=== PATIENT | male | born 1995 | race Caucasian/White ===

== ENCOUNTER 2021-07-03 10:03 | Emergency (ER) | payer OTHER ==
[~2021-07-03] VITALS: Ht 177.8 cm; Wt 93.0 kg
[2021-07-03] MEDS ORDERED: Betamethasone V15 GM TOP (12:31)
[2021-07-03] MEDS ORDERED: Prednisone20 MG PO (12:31)
== END 2021-07-03 12:52 | disposition home or self-care (01) ==
LOC: ER 10:03
DX: L25.5 Unspecified contact dermatitis due to plants, except food (principal)
CPT/HCPCS: 99282